=== PATIENT | female | born 1990 | race African-American/Black ===

== ENCOUNTER 2018-11-30 21:14 | Emergency (ER) | payer SELFPAY ==
[~2018-11-30 21:14] MED LIST: ISOVUE-370 76%-LOCM 1 ML ONE
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
--- NOTE | 2018-11-30 22:10 | RAD ---
TWO VIEWS RIGHT HIP: 11/30/18 HISTORY: Right hip pain. AP and frogleg views right hip is obtained. Two views right hip demonstrates no evidence of right hip fractures, subluxations, or bony lesions. IMPRESSION: Normal two views right hip. POS: [facility]
[2018-11-30 22:11] LABS: BHCG - Serum Negative (NEGATIVE); Pregs Control Background? CLEAR/WHITE (CLR/WHITE); Pregs Control Bar Appear? YES (CONTROL BAR)
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
[2018-11-30 22:15] LABS: #Monocytes 0.5 thou/uL (0.11-0.59); #Neutrophils 4.5 thou/uL (1.40-6.50); %Basophils 0.5 % (0.0-1.0); %Eosinophils 0.5 % (0.0-10.0); %Lymphocytes 27.8 % (21.0-51.0); %Monocytes 7.2 % (0.0-10.0); %Neutrophils 63.9 % (42.0-75.0); Hemoglobin 12.3 g/dL (12.0-16.0); Mean Corpuscular HGB CONC 32.3 g/dL (32.0-36.0); Mean Corpuscular Hemoglobin 26.3 pg (27.0-31.0); Mean Corpuscular Volume 81.5 fL (78.0-98.0); Mean Platelet Volume 8.7 fL (7.4-10.4); Platelet Count 216 thou/uL (130-400); RBC Distribution Width 13.2 % (11.5-14.5); Red Blood Cell (RBC) Count 4.66 mill/uL (4.20-5.40); White Blood Cell (WBC) Count 7.1 thou/uL (4.8-10.8)
[2018-11-30 22:16] LABS: Anion Gap 14 mmol/L (10-20); BUN (Urea Nitrogen) 8 mg/dL (7.0-18.7); Calc. Creatinine Clearance 0 mL/min (70-130); Carbon Dioxide 26 mmol/L (22-29); Chloride 102 mmol/L (98-107); Estimated GFR-MDRD Greater than 90; Glucose 82 mg/dL (70-105); Potassium 3.3 mmol/L (3.5-5.1); Sodium 139 mmol/L (136-145)
[2018-11-30] MEDS ORDERED: Ketorolac Tromethamine 30 MG/ML VIAL ONE (22:40)
== END 2018-11-30 23:10 | disposition home or self-care (01) ==
LOC: ERS 21:14
DX: S00.511A Abrasion of lip, initial encounter (principal); M54.5 Low back pain; R10.31 Right lower quadrant pain; M25.511 Pain in right shoulder; M25.551 Pain in right hip; V43.62XA Car passenger injured in collision with other type car in traffic accident, initial encounter
CPT/HCPCS: 70450; 71260; 72125; 74177; 80048; 84703; 85025; 96374; J1885; Q9966